=== PATIENT | female | born 1990 | race Caucasian/White ===

== ENCOUNTER 2020-08-19 08:36 | Emergency (ER) | payer OTHER, SELFPAY ==
[2020-08-19 08:48] VITALS: BP 117/72; PULSE 82; RESP 20; TEMP 36.9; O2SAT 100
--- NOTE | 2020-08-19 08:50 | ED.FEMALEGU ---
HPI - Female Genitourinary General Chief complaint: Urogenital-Female Stated complaint: UTI SYMPTOMS Source: patient and RN notes reviewed Limitations: no limitations History of Present Illness HPI Narrative: The patient, previously healthy non-smoker/nondrinker, presents with urinary symptoms. Patient states she has a couple day history of urinary frequency and urgency-like prior episode in the remote past. No fever, low back pain, N/V/D, vaginal discharge, , hematuria. Symptoms are mild most noticeable with micturition. She declines STD testing or exposure; she is on spironolactone for acne-not compatible with Bactrim. Related Data Home Medications Medication Instructions Recorded Confirmed spironolactone 100 mg tablet 150 mg PO DAILY tablet 02/29/20 02/29/20 Allergies Allergy/AdvReac Type Severity Reaction Status Date / Time No Known Allergies Allergy Verified 03/10/20 09:15 Review of Systems Review of Systems: Narrative: General/Constitutional: No weight loss,fever Eyes: N0: Redness,discharge Ears/Nose/Throat: No: Epistaxis,ear discharge Respiratory: Denies: Hemoptysis Gastrointestinal: No Vomiting, Bleeding-rectal Skin: No Lumps, eruption Neurologic: No Focal Weakness,Sz Hematologic: Denies: Petechiae/Purpura Psychiatric: No: Suicida ideationl All Other Systems: Reviewed and Negative PMFSH Past Medical History Medical History (Updated 08/19/20 @ 09:04 by Harsh Danielle MD) ADHD (attention deficit hyperactivity disorder), inattentive type HPV (human papilloma virus) anogenital infection Surgical History Surgical History (System 03/10/20 @ 09:15 by Fátima Fernandez) History of wisdom tooth extraction Family History Family History (System 03/10/20 @ 09:15 by Fátima Fernandez) Father Thyroid disease Mother Thyroid disease Social History Social History (System 03/10/20 @ 09:15 by Fátima Fernandez) Smoking status: Never smoker Second hand tobacco smoke exposure: No Alcohol intake: current Substance use: never Substance use type: does not use Gender identity (if verbalized by the patient): Female Comments At time of signature, agree with nursing past medical, surgical, social and family history. There is no relevant family history pertinent to the presenting complaint Exam Narrative: Exam Narrative: General Appearance: Well appearing, Conjunctiva clear Mouth/Throat: Normal appearing, Normal lips, Supple Respiratory: Airway patent, No respiratory distress Abdomen: Soft, Non-tender, Musculoskeletal: Full ROM Skin: Warm, Dry Neurological: A&O x3, CN II-X intact Psychiatric: Normal mood, Normal affect Course Vital Signs Vital signs: Vital Signs Temperature 98.5 F 08/19/20 08:48 Pulse Rate 82 08/19/20 08:48 Respiratory Rate 20 08/19/20 08:48 Blood Pressure 117/72 08/19/20 08:48 Pulse Oximetry 100 08/19/20 08:48 Temperature 98.5 F 08/19/20 08:48 Pulse Rate 82 08/19/20 08:48 Respiratory Rate 20 08/19/20 08:48 Blood Pressure 117/72 08/19/20 08:48 Pulse Oximetry 100 08/19/20 08:48 MDM - Female Genitourinary Lab Data Labs: Urine Glucose Negative Reference Range: Negative Urine Bilirubin Negative Reference Range: Negative Urine Ketone Negative Reference Range: Negative Urine Specific [place] 1.010 Reference Range:1.001-1.035 Urine Blood 1+ Reference Range: Negative * * Urine pH 7.0 Reference Range: 5.0-9.0 Urine Protein
== END 2020-08-19 09:08 | disposition home or self-care (01) ==
PROVIDERS: Emergency Provider Emergency Medicine; PCP Physician Assistant
DX: N39.0 Urinary tract infection, site not specified (principal); F90.9 Attention-deficit hyperactivity disorder, unspecified type
CPT/HCPCS: 81003; 87077; 87086; 87088; 87186; 99213; G0463